=== PATIENT | female | born 1950 | race Caucasian/White ===

== ENCOUNTER 2023-10-22 19:50 | Outpatient (OUT) | payer MEDICARE, OTHER, SELFPAY | END 2023-10-22 19:51 | disposition home or self-care (01) | LOC: SLEEP 19:50 | PROVIDERS: PCP Internal Medicine; Visit Provider Internal Medicine | DX: G47.33 Obstructive sleep apnea (adult) (pediatric) (principal) | CPT/HCPCS: 95810 ==

== ENCOUNTER 2023-11-26 19:49 | Outpatient (OUT) | payer MEDICARE, OTHER, SELFPAY | END 2023-11-26 19:50 | disposition home or self-care (01) | LOC: SLEEP 19:50 | PROVIDERS: PCP Internal Medicine; Visit Provider Internal Medicine | DX: G47.33 Obstructive sleep apnea (adult) (pediatric) (principal) | CPT/HCPCS: 95811 ==